=== PATIENT | female | born 1975 | race Two or more races ===

== ENCOUNTER 2024-10-16 08:22 | Outpatient (CLI) | payer OTHER | END 2024-10-16 08:25 | disposition home or self-care (01) | LOC: SONOGRAMA 08:22 | PROVIDERS: ATTEND Pathology Anatomic Pathology | DX: D34 Benign neoplasm of thyroid gland (principal); E06.3 Autoimmune thyroiditis; E04.1 Nontoxic single thyroid nodule ==